=== PATIENT | female | born 1985 | race American Indian/Alaskan Native ===

== ENCOUNTER 2019-08-26 19:09 | Emergency (ER) | payer MEDICAID ==
--- NOTE | 2019-08-26 19:53 | Event Note ---
ED Screening Note Date of service: 08/26/19 Time: 19:52 ED Screening Note: 33 y o f presents with pelvic pain x 2 days with n/v This initial assessment/diagnostic orders/clinical plan/treatment(s) is/are subject to change based on patients health status, clinical progression and re-assessment by fellow clinical providers in the ED. Further treatment and workup at subsequent clinical providers discretion. Patient/guardian urged not to elope from the ED as their condition may be serious if not clinically assessed and managed. Initial orders include: ua,upt, labs
[2019-08-26 21:00] LABS: Basophils # (Auto) 0.1 K/mm3 (0.0-0.1); Basophils % (Auto) 0.6 % (0.0-1.8); Eosinophils # (Auto) 0.2 K/mm3 (0.0-0.4); Eosinophils % (Auto) 1.8 % (0.0-4.3); Hematocrit 23.7 % (30.3-42.9); Hemoglobin 7.2 gm/dl (10.1-14.3); Lymphocytes % (Auto) 20.8 % (13.4-35.0); Mean Corpuscular HGB Conc 30 % (30-34); Mean Corpuscular Volume 59 fl (79-97); Monocytes # (Auto) 0.9 K/mm3 (0.0-0.8); Monocytes % (Auto) 9.5 % (0.0-7.3); Platelet Count 319 K/mm3 (140-440); Red Blood Count 4.04 M/mm3 (3.65-5.03); Red Cell Distribution Width 18.6 % (13.2-15.2)
[2019-08-26 21:08] LABS: Alanine Aminotransferase 13 units/L (7-56); Albumin 3.8 g/dL (3.9-5); BUN/Creatinine Ratio 12; Blood Urea Nitrogen 6 mg/dL (7-17); Calcium 8.6 mg/dL (8.4-10.2); Hemolysis Index 0
[2019-08-26] MEDS ORDERED: KETOROLAC 30 MG/1 ML INJ IM ONE (21:48)
--- NOTE | 2019-08-26 23:39 | Emergency Department Report ---
ED Female HPI - General Chief complaint: Abdominal Pain Stated complaint: STOMACH PAIN/DISCHARGE Time Seen by Provider: 08/26/19 19:52 Source: patient Mode of arrival: Ambulatory Limitations: No Limitations - History of Present Illness Initial comments: Patient is a A0 33-year-old -Spanish female with a history of chronic iron deficiency anemia due to heavy vaginal bleeding during her menses presents to the ED with complaint of acute onset persistent severe pelvic pain she describes as cramping constantly for the last 2 days. Patient also complains of nausea and vaginal discharge with vaginal irritation for the last 2 days. Patient admits to having unprotected sexual intercourse with no protection. Patient denies vomiting, dysuria, urinary frequency and urgency, dizziness, fever, chills, diarrhea, chest pain or shortness of breath or low back pain and vaginal bleeding. Patient unsure of her last menstrual cycle date. MD Complaint: vaginal discharge, pelvic pain -: Sudden, days(s) (7) Location: suprapubic, other (vaginal) Radiation: non-radiating Severity: severe Severity scale (0 -10): 7 Quality: cramping, sharp, burning, aching Consistency: constant Improves with: none Worsens with: none Are you Now?: No Last Menstrual Period: 08/19/19 EDC: 05/25/20 Associated Symptoms: denies other symptoms, vaginal discharge, abdominal pain. denies: vaginal bleeding, nausea/vomiting, fever/chills, headaches, loss of appetite, dysuria, hematuria, rash, seizure, shortness of breath, syncope, weakness - Related Data Sexually active: Yes : 3 Para: 3 A: 0 Previous Rx's Medication Instructions Recorded Last Taken Type Acyclovir [Zovirax Cap] 200 mg PO 5XD 5 Days cap 03/03/15 Unknown Rx metroNIDAZOLE [Flagyl] 500 mg PO Q12HR #14 tab 11/02/15 Unknown Rx Acetaminophen/Codeine [Tylenol 1 tab PO Q6H PRN #25 tab 11/16/15 Unknown Rx /Codeine # 3 tab] Acyclovir [Zovirax Tab] 800 mg PO 5XD #50 tab 11/16/15 Unknown Rx Ibuprofen [Motrin] 600 mg PO Q8H PRN #50 tablet 11/16/15 Unknown Rx Acetaminophen [Tylenol] 500 mg PO Q6HR PRN #30 tablet 08/27/19 Unknown Rx No.137/Iron/Folic Acd 1 each PO DAILY #60 tablet 08/27/19 Unknown Rx [[facility] Tablet] Promethazine [Phenergan] 25 mg PO Q6HR PRN #30 tab 08/27/19 Unknown Rx cephALEXin [Keflex] 500 mg PO Q8HR #30 cap 08/27/19 Unknown Rx Allergies Allergy/AdvReac Type Severity Reaction Status Date / Time No Known Allergies Allergy Verified 08/26/19 19:12 ED Review of Systems ROS: Stated complaint: STOMACH PAIN/DISCHARGE Other details as noted in HPI Constitutional: denies: chills, fever Eyes: denies: eye pain, eye discharge, vision change ENT: denies: ear pain, throat pain Respiratory: denies: cough, shortness of breath, wheezing Cardiovascular: denies: chest pain, palpitations Endocrine: no symptoms reported Gastrointestinal: abdominal pain (suprapubic). denies: nausea, vomiting, diarrhea Genitourinary: urgency, frequency, discharge, dyspareunia Musculoskeletal: denies: back pain, joint swelling, arthralgia Skin: denies: rash, lesions Neurological: denies: headache, weakness, paresthesias Psychiatric: denies: anxiety, depression Hematological/Lymphatic: denies: easy bleeding, easy bruising ED Past Medical Hx - Past Medical History Additional medical history: Herpes. hormonal imbalance (irregular periods) - Surgical History Additional Surgical History: x 4 - Social History Smoking Status: Current Some Day Smoker Substance Use Type: None - Medications Home Medications: Home Medications Medication Instructions Recorded Confirmed Last Taken Type Acyclovir [Zovirax Cap] 200 mg PO 5XD 5 Days cap 03/03/15 Unknown Rx metroNIDAZOLE [Flagyl] 500 mg PO Q12HR #14 tab 11/02/15 Unknown Rx Acetaminophen/Codeine [Tylenol 1 tab PO Q6H PRN #25 tab 11/16/15 Unknown Rx /Codeine # 3 tab] Acyclovir [Zovirax Tab] 800 mg PO 5XD #50 tab 11/16/15 Unknown Rx Ibuprofen [Motrin] 600 mg PO Q8H PRN #50 tablet 11/16/15 Unknown Rx Acetaminophen [Tylenol] 500 mg PO Q6HR PRN #30 tablet 08/27/19 Unknown Rx No.137/Iron/Folic Acd 1 each PO DAILY #60 tablet 08/27/19 Unknown Rx [[facility] Tablet] Promethazine [Phenergan] 25 mg PO Q6HR PRN #30 tab 08/27/19 Unknown Rx cephALEXin [Keflex] 500 mg PO Q8HR #30 cap 08/27/19 Unknown Rx ED Physical Exam - General Limitations: No Limitations General appearance: alert, in no apparent distress - Head Head exam: Present: atraumatic, normocephalic, normal inspection - Eye Eye exam: Present: normal appearance, PERRL, EOMI Pupils: Present: normal accommodation - ENT ENT exam: Present: normal exam, normal orophraynx, mucous membranes moist, TM's normal bilaterally, normal external ear exam - Neck Neck exam: Present: normal inspection, full ROM - Respiratory Respiratory exam: Present: normal lung sounds bilaterally. Absent: respiratory distress, wheezes, rales, rhonchi, chest wall tenderness, decreased breath sounds, prolonged expiratory - Cardiovascular Cardiovascular Exam: Present: regular rate, normal rhythm, normal heart sounds. Absent: systolic murmur, diastolic murmur, rubs, gallop - GI/Abdominal GI/Abdominal exam: Present: soft, tenderness (mild suprapubic tenderness), normal bowel sounds - External exam: Present: normal external exam Speculum exam: Present: vaginal discharge, cervical discharge Bi-manual exam: Present: cervical motion tendernes, adnexal tenderness, uterine tenderness, other (female asphalt paver operator present doing pelvic exam, Ms Ellis) - Extremities Exam Extremities exam: Present: normal inspection, full ROM, normal capillary refill - Back Exam Back exam: Present: normal inspection, full ROM - Neurological Exam Neurological exam: Present: alert, oriented X3, CN II-XII intact, normal gait, reflexes normal - Psychiatric Psychiatric exam: Present: normal affect, normal mood - Skin Skin exam: Present: warm, dry, intact, normal color. Absent: rash ED Course Vital Signs 08/26/19 08/27/19 19:53 02:07 Temperature 98.2 F Pulse Rate 68 Respiratory 16 18 Rate Blood Pressure 127/62 O2 Sat by Pulse 100 Oximetry - Reevaluation(s) Reevaluation #1: 08/27/19 03:39 Patient is a 33-year-old -Spanish female with a history of chronic and deficiency anemia and noncompliant with medications presents to the ED with complaint of acute onset persistent severe pelvic pain with nausea, vaginal discharge and vaginal medication for the last 2 days. In the ED, patient is alert and oriented 3 and is not in distress. Patient was treated in the ED for pain. Lab test results show hemoglobin 7.2, hematocrit of 23.7 and MCV of 59. Urinalysis shows positive hCG test, and significant urinary tract infection. Pelvic exam is consistent with acute PID. Wet prep shows positive tests for Trichomonas and bacterial vaginosis. Transvaginal ultrasound shows a single, living intrauterine with estimated sonographic age of 6 weeks, 1 day(s), and heart rate of 118 bpm. It also shows right corpus luteum. Patient was treated in the ED empirically for chlamydia and gonorrhea, also treated for Trichomonas, and acute urinary tract infection with Rocephin. On reevaluation, patient's pain is well-controlled with medications. Patient was d ischarged home on antibiotics for acute urinary tract infection and patient was advised to take vitamins with iron and also advised to take Tylenol as needed for pain. 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 ED Medical Decision Making - Lab Data Result diagrams: 08/26/19 20:23 08/26/19 20:23 - Radiology Data Radiology results: report reviewed, image reviewed Findings [address] [address] Ultrasound Report Signed Patient: JUAN ANTONIO YUNG MR#: [id number] : 1985 Acct:[id number] Age/Sex: 33 / F ADM Date: 08/26/19 Loc: ED Attending Dr: Ordering Physician: SYLVAIN CANCHOLA Date of Service: 08/27/19 Procedure(s): US OB <= 14 weeks fetus Accession Number(s): [id number] cc: SYLVAIN CANCHOLA ULTRASOUND OBSTETRIC INDICATION / CLINICAL INFORMATION: pelvic pain. Clinical Gestational Age (GA): 8 week 2 days TECHNIQUE: Transabdominal. COMPARISON: None available. FINDINGS: GESTATIONAL SAC: Well-defined oval shape and intrauterine in location. YOLK SAC: No significant abnormality. EMBRYO/FETUS: No significant abnormality. - [place]-Rump Length = 0.4 cm = 6 weeks, 1 day(s). - Heart Rate, beats per minute (if present) = 118 ADNEXA: A corpus luteum is noted in the right ovary. FREE FLUID: None. ADDITIONAL FINDINGS: None. IMPRESSION: 1. Single, living intrauterine with estimated sonographic age of 6 weeks, 1 day(s). 2. Right corpus luteum. Signer Name: More Simmons MD Signed: 08/27/2019 3:15 AM Workstation Name: [id number] Transcribed By: [facility] Dictated By: More Simmons MD Electronically Authenticated By: More Simmons MD Signed Date/Time: 08/27/19 [id number] - Medical Decision Making Patient is a 33-year-old -Spanish female with a history of chronic and deficiency anemia and noncompliant with medications presents to the ED with complaint of acute onset persistent severe pelvic pain with nausea, vaginal discharge and vaginal medication for the last 2 days. In the ED, patient is alert and oriented 3 and is not in distress. Patient was treated in the ED for pain. Lab test results show hemoglobin 7.2, hematocrit of 23.7 and MCV of 59. Urinalysis shows positive hCG test, and significant urinary tract infection. Pelvic exam is consistent with acute PID. Wet prep shows positive tests for Trichomonas and bacterial vaginosis. Transvaginal ultrasound shows a single, living intrauterine with estimated sonographic age of 6 weeks, 1 day(s), and heart rate of 118 bpm. It also shows right corpus luteum. Patient was treated in the ED empirically for chlamydia and gonorrhea, also treated for Trichomonas, and acute urinary tract infection with Rocephin. On reevaluation, patient's pain is well-controlled with medications. Patient was discharged home on antibiotics for acute urinary tract infection and patient was advised to take vitamins with iron and also advised to take Tylenol as needed for pain. 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 - Differential Diagnosis Acute PID; Acute UTI; ; Trichomonas; STD, Chronic anemia Critical care attestation.: If time is entered above; I have spent that time in minutes in the direct care of this critically ill patient, excluding procedure time. ED Disposition Clinical Impression: Acute suprapubic pain, Acute pelvic inflammatory disease (PID), Trichomonas vaginalis (TV) infection, STD (sexually transmitted disease), Acute urinary tract infection, Chronic iron deficiency anemia Qualifiers: Weeks of gestation: less than 8 weeks Qualified Code(s): Z3A.01 - Less than 8 weeks gestation of Disposition: TO HOME OR SELFCARE Is pt being admited?: No Does the pt Need Aspirin: No Condition: Stable Instructions: Abdominal Pain (ED), Pelvic Inflammatory Disease (ED), Trichomoniasis (ED), Sexually Transmitted Diseases (ED), Iron Deficiency Anemia (ED), (ED) Additional Instructions: Take medication with food, drink plenty of fluids and follow-up with your primary care physician or TEST CAR DRIVER physician in 7-10 days for reevaluation. Return to the ED immediately if symptoms get worse. Prescriptions: Acetaminophen [Tylenol] 500 mg PO Q6HR PRN #30 tablet PRN Reason: Pain , Severe (7-10) No.137/Iron/Folic Acd [[facility] Tablet] 1 each PO DAILY #60 tablet cephALEXin [Keflex] 500 mg PO Q8HR #30 cap Promethazine [Phenergan] 25 mg PO Q6HR PRN #30 tab PRN Reason: Nausea Referrals: PRIMARY CARE,MD [Primary Care Provider] - 3-5 Days Forms: Work/School Release Form(ED) Time of Disposition: 23:38 Print Language: KYRGYZ
[2019-08-27] MEDS ORDERED: AZITHROMYCIN 250 MG TAB PO ONE (00:23)
[2019-08-27] MEDS ORDERED: ONDANSETRON 4 MG ODT TAB PO ONE (00:23)
[2019-08-27] MEDS ORDERED: LIDOCAINE-MPF (1%) 10 MG/1 ML VIAL 5 ML INFILTRATI ONE (00:23)
[2019-08-27] MEDS ORDERED: metroNIDAZOLE 500 MG TAB PO ONE (01:39)
[2019-08-27] MEDS ORDERED: KETOROLAC 30 MG/1 ML INJ ONE (01:42)
[2019-08-27 01:48] LABS: Bacteria,Urine 2+ /HPF (Negative); Bilirubin,Urine NEG (Negative); Blood,Urine NEG (Negative); Color,Urine Yellow (Yellow); Mucus,Urine 2+ /HPF; Protein,Urine <15 mg/dL mg/dL (Negative)
[2019-08-27 01:51] LABS: HCG Qualitative,Urine Positive (Negative)
--- NOTE | 2019-08-27 03:19 | Ultrasound Report ---
ULTRASOUND OBSTETRIC INDICATION / CLINICAL INFORMATION: pelvic pain. Clinical Gestational Age (GA): 8 week 2 days TECHNIQUE: Transabdominal. COMPARISON: None available. FINDINGS: GESTATIONAL SAC: Well-defined oval shape and intrauterine in location. YOLK SAC: No significant abnormality. EMBRYO/FETUS: No significant abnormality. - [place]-Rump Length = 0.4 cm = 6 weeks, 1 day(s). - Heart Rate, beats per minute (if present) = 118 ADNEXA: A corpus luteum is noted in the right ovary. FREE FLUID: None. ADDITIONAL FINDINGS: None. IMPRESSION: 1. Single, living intrauterine with estimated sonographic age of 6 weeks, 1 day(s). 2. Right corpus luteum. Signer Name: More Simmons MD Signed: 08/27/2019 3:15 AM Workstation Name: [id number]
[2019-08-27 06:50] VITALS: BP 130/70
== END 2019-08-27 04:15 | disposition home or self-care (01) ==
LOC: ED 19:09
DX: O23.591 Infection of other part of genital tract in pregnancy, first trimester (principal); O98.311 Other infections with a predominantly sexual mode of transmission complicating pregnancy, first trimester; A59.01 Trichomonal vulvovaginitis; O23.41 Unspecified infection of urinary tract in pregnancy, first trimester; O99.011 Anemia complicating pregnancy, first trimester; D50.9 Iron deficiency anemia, unspecified; Z3A.01 Less than 8 weeks gestation of pregnancy; A64 Unspecified sexually transmitted disease; F17.200 Nicotine dependence, unspecified, uncomplicated; Z79.899 Other long term (current) drug therapy
CPT/HCPCS: 36415; 76801; 80053; 81001; 81025; 83690; 84702; 85025; 87210; 87591; 96372; 99284; J0696; J1885; Q0162